=== PATIENT | female | born 1965 | race Asian ===

== ENCOUNTER 2018-10-02 06:54 | Day surgery (SDC) | payer OTHER ==
[2018-10-02] MEDS ORDERED: FENTAnyl 50 MCG/ML VIAL (10:53)
[2018-10-02] MEDS ORDERED: MIDAZOLAM 1 MG/ML 2 ML INJ (10:53)
== END 2018-10-02 12:31 | disposition home or self-care (01) ==
LOC: GIL 06:54
DX: Z12.11 Encounter for screening for malignant neoplasm of colon (principal); D12.4 Benign neoplasm of descending colon; K64.8 Other hemorrhoids
CPT/HCPCS: 45380; 88305

== ENCOUNTER 2018-11-19 06:11 | Day surgery (SDC) | payer OTHER ==
[2018-11-19] MEDS ORDERED: LIDOCAINE 2% (SDV) 5 ML INJ (09:39)
[2018-11-19] MEDS ORDERED: MIDAZOLAM 1 MG/ML 2 ML INJ (09:39)
[2018-11-19] MEDS ORDERED: PROPOFOL 20 ML (09:39)
[2018-11-19] MEDS ORDERED: FAMOTIDINE 20 MG INJ (09:47)
[2018-11-19] MEDS ORDERED: DEXAMETHASONE 4 MG/ML 5 ML INJ (09:47)
[2018-11-19] MEDS ORDERED: ONDANSETRON 4 MG INJ (09:47)
[2018-11-19] MEDS ORDERED: FENTAnyl 50 MCG/ML VIAL (09:51)
[2018-11-19] MEDS ORDERED: DIPHENHYDRAMINE 50 MG INJ IV (10:00)
[2018-11-19] MEDS ORDERED: PROCHLORPERAZINE 10 MG INJ IV (10:00)
[2018-11-19] MEDS ORDERED: OXYCODONE/ACETAMINOPHEN (5/325) TAB PO (10:00)
[2018-11-19] MEDS ORDERED: HYDROmorphONE 1 MG/5 ML IV SYRINGE IV ×3 (10:00)
[2018-11-19] MEDS ORDERED: ONDANSETRON 4 MG INJ IV (10:00)
[2018-11-19] MEDS ORDERED: FENTAnyl 50 MCG/ML VIAL IV (10:00)
[2018-11-19] MEDS ORDERED: MEPERIDINE 25 MG INJ IV (10:00)
[2018-11-19] MEDS ORDERED: ACETAMINOPHEN 325 MG TAB PO (10:30)
== END 2018-11-19 11:42 | disposition home or self-care (01) ==
LOC: SDS 06:11
DX: D26.0 Other benign neoplasm of cervix uteri (principal)
CPT/HCPCS: 58558; 84702; 84703; 86850; 86900; 86901; 88305